=== PATIENT | male | born 1965 | race Two or more races ===

== ENCOUNTER → 2018-03-10 | Outpatient (CLI) | payer MEDICAID ==
[~2018-03-10] MED LIST: ASPI-515 PO; ATOR-2 PO; CLOP75TA PO; DEXT4TAB PO; DOCU-131 PO; FURO40TA6 PO; HYDR-3307 PO; INSU100I18 SQ-INSULIN; INSU100I28 SQ-INSULIN; METO25TA91 PO; PANT40TA5 PO
== END | disposition home or self-care (01) ==
LOC: CVU 09:42
PROVIDERS: ATTEND Internal Medicine Cardiovascular Disease
DX: I08.3 Combined rheumatic disorders of mitral, aortic and tricuspid valves (principal); I31.3 Pericardial effusion (noninflammatory); I25.2 Old myocardial infarction
CPT/HCPCS: 93306

== ENCOUNTER → 2018-03-12 | Outpatient (CLI) | payer MEDICAID | END | disposition home or self-care (01) | LOC: CFH 10:35 | PROVIDERS: ATTEND Internal Medicine Cardiovascular Disease | DX: J90 Pleural effusion, not elsewhere classified (principal); J98.11 Atelectasis; Z98.890 Other specified postprocedural states | CPT/HCPCS: 71046 ==

== ENCOUNTER → 2018-03-17 | Outpatient (CLI) | payer MEDICAID | END | disposition home or self-care (01) | LOC: RAD 09:34 | PROVIDERS: ATTEND Internal Medicine Cardiovascular Disease | DX: J90 Pleural effusion, not elsewhere classified (principal); I25.5 Ischemic cardiomyopathy | CPT/HCPCS: 71045; 78582; A9540; A9558 ==

== ENCOUNTER → 2018-04-22 | Outpatient (CLI) | payer MEDICAID | END | disposition home or self-care (01) | LOC: CFH 13:29 | PROVIDERS: ATTEND Nurse Practitioner Family | DX: R00.1 Bradycardia, unspecified (principal); Z98.890 Other specified postprocedural states | CPT/HCPCS: 71046 ==

== ENCOUNTER 2019-12-07 14:44 | Outpatient (CLI) | payer MEDICAID ==
[~2019-12-07 14:44] MED LIST changes: +DEXT-230 PO; -DEXT4TAB PO; +GABA300C PO; -HYDR-3307 PO; +HYDR-36 PO; +INSU100I34 SQ; +LOSA25TA25 PO; +METF500T17 PO
== END 2019-12-07 23:59 | disposition home or self-care (01) ==
LOC: CFH 14:44
PROVIDERS: ATTEND Internal Medicine Cardiovascular Disease
DX: I08.8 Other rheumatic multiple valve diseases (principal); I25.5 Ischemic cardiomyopathy
CPT/HCPCS: 93306